=== PATIENT | male | born 1955 | race Caucasian/White ===

== ENCOUNTER 2018-12-15 15:08 | Emergency (ER) | payer MEDICARE, OTHER ==
[2018-12-15 15:49] LABS: ADD MAN DIFF? NO
[2018-12-15 15:52] LABS: WHITE BLOOD COUNT 9.6 10^3/ul (4.8-10.8)
[2018-12-15 15:52] LABS: BASOPHILS % 0.4 % (0.0-2.0); EOSINOPHILS # 0.3 10^3/ul (0.0-0.5); EOSINOPHILS % 2.9 % (0.0-7.0); HEMATOCRIT 41.5 % (42.0-52.0); HEMOGLOBIN 14.4 g/dl (14.0-18.0); LYMPHOCYTES # 1.6 10^3/ul (0.8-2.9); LYMPHOCYTES % 16.1 % (15.0-51.0); MEAN CORPUSCULAR HEMOGLOBIN 31.6 pg (29.0-33.0); MEAN CORPUSCULAR HGB CONC 34.7 g/dl (32.0-37.0); MEAN CORPUSCULAR VOLUME 91.2 fl (82.0-101.0); MEAN PLATELET VOLUME 9.2 fl (7.4-10.4); MONOCYTE # 0.8 10^3/ul (0.3-0.9); MONOCYTES % 7.9 % (0.0-11.0); NEUTROPHILS % 72.3 % (39.0-77.0); PLATELET COUNT 209 10^3/UL (140-415); RED BLOOD COUNT 4.55 10^6/ul (4.70-6.10); RED CELL DISTRIBUTION WIDTH 11.6 % (11.5-14.5)
[2018-12-15 16:05] LABS: ANION GAP 11 (5-13); BLOOD UREA NITROGEN 21 mg/dl (7-20); CALCIUM 10.2 mg/dl (8.4-10.2); CARBON DIOXIDE 27 mmol/L (21-31); CHLORIDE 100 mmol/L (97-110); CREATININE 1.18 mg/dl (0.61-1.24); Estimated GFR > 60 mL/min (>60); GLUCOSE 131 mg/dl (70-220); MAGNESIUM 1.9 mg/dl (1.7-2.5); POTASSIUM 4.6 mmol/L (3.5-5.1); SODIUM 138 mmol/L (135-144)
[2018-12-15 16:16] LABS: TROPONIN-I < 0.012 ng/ml (0.000-0.120)
[2018-12-15] MEDS: ADENOSINE 6 MG INJ IV (16:32)
[2018-12-15 16:35] LABS: THYROID STIMULATING HORMONE 0.798 MIU/L (0.465-4.680)
== END 2018-12-15 18:00 | disposition home or self-care (01) ==
LOC: E/R 15:08
DX: I47.1 Supraventricular tachycardia (principal); I10 Essential (primary) hypertension
CPT/HCPCS: 36415; 71045; 80048; 83735; 84443; 84484; 85025; 93005; 96374; 99285-25